=== PATIENT | female | born 1955 | race Caucasian/White ===

== ENCOUNTER → 2020-09-26 09:33 | Outpatient (BNVA) | payer MEDICARE, SELFPAY | PROVIDERS: Referring Provider Nurse Practitioner Family; Visit Provider Orthopaedic Surgery | DX: S42.292D Other displaced fracture of upper end of left humerus, subsequent encounter for fracture with routine healing (principal); X58.XXXD Exposure to other specified factors, subsequent encounter | CPT/HCPCS: 73030 ==

== ENCOUNTER → 2020-11-13 08:18 | Outpatient (BNVA) | payer MEDICARE, SELFPAY | PROVIDERS: PCP Nurse Practitioner Family; Referring Provider Orthopaedic Surgery; Visit Provider Anesthesiology Pain Medicine | DX: M54.5 Low back pain (principal); M19.90 Unspecified osteoarthritis, unspecified site; Z79.891 Long term (current) use of opiate analgesic | CPT/HCPCS: 99215 ==

== ENCOUNTER → 2020-12-04 12:39 | Outpatient (BNVA) | payer MEDICARE, MEDICAID, SELFPAY | PROVIDERS: PCP Nurse Practitioner Family; Visit Provider Anesthesiology Pain Medicine | DX: M51.17 Intervertebral disc disorders with radiculopathy, lumbosacral region (principal); Z79.891 Long term (current) use of opiate analgesic | CPT/HCPCS: 62323; J1040; J3490 ==

== ENCOUNTER → 2020-12-18 10:48 | Outpatient (BNVA) | payer MEDICARE, SELFPAY | PROVIDERS: PCP Nurse Practitioner Family; Visit Provider Anesthesiology Pain Medicine | DX: M47.816 Spondylosis without myelopathy or radiculopathy, lumbar region (principal); S32.009A Unspecified fracture of unspecified lumbar vertebra, initial encounter for closed fracture; X58.XXXA Exposure to other specified factors, initial encounter; Z79.891 Long term (current) use of opiate analgesic; S42.302A Unspecified fracture of shaft of humerus, left arm, initial encounter for closed fracture | CPT/HCPCS: 73030; 99213; 99214 ==

== ENCOUNTER 2020-12-18 14:12 | Outpatient (CLI) | payer MEDICARE, SELFPAY ==
--- NOTE | 2020-12-18 14:30 | XR_ITS ---
WS: [id number] SHOULDER LEFT TECHNIQUE: 3 views of the left shoulder CLINICAL INFORMATION: S42.309A - Unspecified fracture of shaft of humerus, unsp... COMPARISON: None. FINDINGS: Moderate arthritis AC joint with hypertrophic changes. Mild downsloping of the acromion. Previously d escribed impacted fracture left humeral head and neck with loss of subacromial space. No dislocation. Fracture lines are less apparent today. Greater tuberosity fracture fragment similar to August 23 1 Osteopenia. XR/XR shoulder LT min 2V* [id number] IMPRESSION: Previously described impacted fracture left humeral head and neck is similar in alignment compared to previous with less apparent fracture lines today compati ble with interval healing
== END 2020-12-18 14:13 | disposition home or self-care (01) ==
PROVIDERS: PCP Nurse Practitioner Family; Visit Provider Anesthesiology Pain Medicine
DX: S42.302A Unspecified fracture of shaft of humerus, left arm, initial encounter for closed fracture (principal); X58.XXXA Exposure to other specified factors, initial encounter
CPT/HCPCS: 73030

== ENCOUNTER → 2021-01-23 11:03 | Outpatient (BNVA) | payer MEDICARE, SELFPAY | PROVIDERS: PCP Nurse Practitioner Family; Visit Provider Anesthesiology Pain Medicine | DX: M51.17 Intervertebral disc disorders with radiculopathy, lumbosacral region (principal); M51.36 Other intervertebral disc degeneration, lumbar region; S42.302A Unspecified fracture of shaft of humerus, left arm, initial encounter for closed fracture; M54.2 Cervicalgia; M54.9 Dorsalgia, unspecified; Z79.891 Long term (current) use of opiate analgesic; X58.XXXA Exposure to other specified factors, initial encounter | CPT/HCPCS: 99214 ==

== ENCOUNTER 2021-01-23 11:43 | Outpatient (CLI) | payer MEDICARE, SELFPAY ==
--- NOTE | 2021-01-23 11:50 | XR_ITS ---
WS: [id number] LUMBAR SPINE: 5 VIEWS TECHNIQUE: AP, obliques, lateral and L5-S1 spot. HISTORY: Low back pain, LEFT hip and leg pain. COMPARISON: 09/20/2020 Mild LEFT curvature lumbar spine. Severe disc space narrowing throughout the lumbar spine. There is d iffuse osteopenia. Prior compression fractures involving L1-L4. L4 compression fracture has increased and is now biconcave. Moderate facet joint arthritis throughout the lumbar spine. Bilateral moderate to severe foraminal st enosis at all levels. SI joints are symmetric bilaterally. No soft tissue abnormalities. XR/XR lumbar spine min 4V 23550 IMPRESSION: 1. Remote compression fractures involving L1-L4. L4 compression fracture has p rogressed and is now biconcave. Progression since 09/20/2020. 2. Diffuse osteopenia. 3. Moderate to severe bilateral foraminal stenosis at all levels.
== END 2021-01-23 11:44 | disposition home or self-care (01) ==
PROVIDERS: PCP Nurse Practitioner Family; Visit Provider Anesthesiology Pain Medicine
DX: M79.605 Pain in left leg; S32.019A Unspecified fracture of first lumbar vertebra, initial encounter for closed fracture; M25.552 Pain in left hip; S32.029A Unspecified fracture of second lumbar vertebra, initial encounter for closed fracture; S32.039A Unspecified fracture of third lumbar vertebra, initial encounter for closed fracture; S32.049A Unspecified fracture of fourth lumbar vertebra, initial encounter for closed fracture; X58.XXXA Exposure to other specified factors, initial encounter; M85.80 Other specified disorders of bone density and structure, unspecified site; M48.061 Spinal stenosis, lumbar region without neurogenic claudication
CPT/HCPCS: 72110

== ENCOUNTER 2021-01-25 06:00 | Outpatient (RCR) | payer MEDICARE, SELFPAY | END 2021-02-23 23:59 | disposition home or self-care (01) | LOC: MPT 06:00 | PROVIDERS: PCP Nurse Practitioner Family; Referring Provider Anesthesiology Pain Medicine; Visit Provider Anesthesiology Pain Medicine | DX: S42.309A Unspecified fracture of shaft of humerus, unspecified arm, initial encounter for closed fracture (principal); X58.XXXA Exposure to other specified factors, initial encounter | CPT/HCPCS: 97110; 97140; 97161; G0283 ==

== ENCOUNTER → 2021-02-05 13:25 | Outpatient (BNVA) | payer MEDICARE, MEDICAID, SELFPAY | PROVIDERS: PCP Nurse Practitioner Family; Visit Provider Anesthesiology Pain Medicine | DX: G89.29 Other chronic pain (principal); M54.16 Radiculopathy, lumbar region; Z87.891 Personal history of nicotine dependence | CPT/HCPCS: 62323; J1100; J3490 ==

== ENCOUNTER 2021-02-15 14:39 | Outpatient (CLI) | payer MEDICARE, MEDICAID, SELFPAY ==
--- NOTE | 2021-02-15 15:15 | MR_ITS ---
WS: [id number] MRI LUMBAR SPINE NONCONTRAST HISTORY: Pain after fall, worse in the LEFT gluteal region. COMPARISON: 09/28/2020 TECHNIQUE: Sagittal and axial multisequence imaging is submitted. Straightening of the normal cervical lordosis. Slight reversal at C5-6 level with a focal disc protru levi contacting the ventral cervical cord and facet arthritis. Mild central stenosis at C5-6. Abnorma l signal in the T6 vertebral body. This may be related to a prior mild compression deformity of appro ximately 20%. No retropulsion. This vertebral body abnormality is only seen on the survey image. Straightening and LEFT curvature of the lumbar spine. Multiple compression fractures in the lumbar spine. L1 compression fracture with edema greatest along the RIGHT lateral vertebral body and a small amount of edema extending into the LEFT pedicle and gentile tiny is new since 09/28/2020. 2 mm retropulsion of posterior superior endplate. Approximately 20% loss o f height. L2 compression fracture with concave deformity in the superior endplate is unchanged. Mild anterior wedging of L3 is unchanged. L4 compression fracture has progressed. There is biconcave defor mity of L4 vertebral body with new marrow edema extending into the pedicles. Very mild retropulsion o f the posterior vertebral body by 3 mm is new. L5 is normal height. L5 anterolisthesis by 8 mm. There is new marrow edema which is minimal in the pedicles and lamina of L5. Conus terminates normally at L1. T12-L1: Diffuse moderate annular disc bulging with encroachment and deformity the ventral thecal sac. Moderate ligamentum flavum and facet arthritis contributing to mild central, bilateral subarticular and foraminal stenosis. There is very slight retropulsion of posterior superior endplate by 2 mm with only minimal contact on the thecal sac. L1-L2: Diffuse annular disc bulging and osteophytic ridging with moderate facet and ligamentum flavum hypertrophy. Facet disease encroaches into the lateral thecal sac and subarticular recesses. Mild ce ntral stenosis with moderate bilateral subarticular recess and foraminal stenosis. Most significant s tenosis involves the RIGHT foramen where there is encroachment upon the traversing and exiting nerve roots. L2-L3: Marked annular disc bulging with osteophytic ridging. Advanced facet and ligamentum flavum hyp ertrophy. Encroachment into the thecal sac with moderate to severe central and bilateral subarticular recess and RIGHT foraminal stenosis. Mild stenosis LEFT foramen. Significant effacement of CSF. L3-L4: Marked annular disc bulging and osteophytic ridging with facet and ligamentum flavum hypertrop hy encroaching into the thecal sac and subarticular recesses. Just below the disc level there is branden re stenosis which is being exacerbated by retropulsion of L4. Severe central, bilateral subarticular recess and foraminal stenosis. L4-L5: Diffuse annular disc bulging with osteophytic ridging. Severe facet joint arthritis and ligame ntum flavum hypertrophy encroaching into the thecal sac. Severe central, bilateral subarticular reces s and foraminal stenosis. There is complete effacement of fat in the foramen and subarticular recesse s. L5-S1: Mild unroofing of the disc with a disc contacting the ventral thecal sac. Moderate ligamentum flavum and facet arthritis. There is severe central stenosis just above the disc level with moderate to severe bilateral foraminal stenosis and encroachment upon the nerve roots.There is edema within th e paravertebral soft tissues at the L4 and L5 levels. This may be related to an acute inflammatory pr ocess or secondary to the recent epidural injections. MR/MR lumbar spine wo con* [id number] IMPRESSION: 1. New compression fractures at L1 and L4 since 09/28/2020. L4 compression fract ure has progressed. Minimal retropulsion of posterior superior endplates. 2. Remote stable compression fractures at L2 and L3. 3. Severe central, bilateral subarticular recess and foraminal stenosis at L4- 5. 4. Severe central stenosis just above the disc level at L5-S1 with moderate to severe bilateral foraminal stenosis and encroachment upon the nerve roots. 5. Severe central, bilateral subarticular recess and foraminal stenosis at L3- 4. 6. Moderate to severe central and bilateral subarticular recess and RIGHT [place] stenosis at L2-3. Only mild LEFT foraminal stenosis. 7. Mild central stenosis with moderate bilateral subarticular recess and sam inal stenosis at L1-2. 8. Mild central, bilateral subarticular recess and foraminal stenosis at T12-L 1. 9. Mild cervical stenosis at C5-6 is noted on the survey image. 10. Abnormal signal in the T6 vertebral body may be from a remote compression fracture. 11. L5 anterolisthesis by 8 mm.
== END 2021-02-15 14:40 | disposition home or self-care (01) ==
LOC: RADSHAW 14:49
PROVIDERS: PCP Nurse Practitioner Family; Visit Provider Anesthesiology Pain Medicine
DX: S32.019A Unspecified fracture of first lumbar vertebra, initial encounter for closed fracture (principal); S32.049A Unspecified fracture of fourth lumbar vertebra, initial encounter for closed fracture; S32.029A Unspecified fracture of second lumbar vertebra, initial encounter for closed fracture; S32.039A Unspecified fracture of third lumbar vertebra, initial encounter for closed fracture; M48.061 Spinal stenosis, lumbar region without neurogenic claudication; M48.07 Spinal stenosis, lumbosacral region; M48.02 Spinal stenosis, cervical region; X58.XXXA Exposure to other specified factors, initial encounter
CPT/HCPCS: 72148

== ENCOUNTER → 2021-02-27 09:27 | Outpatient (BNVA) | payer MEDICARE, SELFPAY | PROVIDERS: PCP Nurse Practitioner Family; Visit Provider Anesthesiology Pain Medicine | DX: M54.2 Cervicalgia (principal); S42.309A Unspecified fracture of shaft of humerus, unspecified arm, initial encounter for closed fracture; S32.010A Wedge compression fracture of first lumbar vertebra, initial encounter for closed fracture; S32.040A Wedge compression fracture of fourth lumbar vertebra, initial encounter for closed fracture; S32.020A Wedge compression fracture of second lumbar vertebra, initial encounter for closed fracture; S32.030A Wedge compression fracture of third lumbar vertebra, initial encounter for closed fracture; X58.XXXA Exposure to other specified factors, initial encounter; M19.012 Primary osteoarthritis, left shoulder; M43.16 Spondylolisthesis, lumbar region; M48.061 Spinal stenosis, lumbar region without neurogenic claudication | CPT/HCPCS: 99205 ==

== ENCOUNTER 2021-04-10 10:06 | Day surgery (SDC) | payer MEDICARE, SELFPAY ==
[2021-04-09 13:25] VITALS: BMI 39.0
[2021-04-10] VITALS (8 sets, daily range): BP systolic 107–175; BP diastolic 60–111; PULSE 60–91; RESP 16–20; TEMP 36.3–36.4; O2SAT 94–96
--- NOTE | 2021-04-10 | SCC_ITS ---
Procedure done: Kyphoplasty L1 and L4 , vertebroplasty L2 and L3 156.2 seconds of fluoroscopic guidance, for a cumulative dose of 255.29 mGy and 240.03 mGy, was provided to Dr. Newton by the radiology department. C-arm images of the lumbar spine were saved for the patient's permanent record. [facility]
--- NOTE | 2021-04-10 10:54 | ECG_ITS ---
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 Measurements Intervals [place] Rate: 75 P: 54 IN: 143 QRS: 35 QRSD: 83 T: 46 QT: 373 QTc: 418 Interpretive Statements SINUS RHYTHM No previous ECG available for comparison Electronically Signed On 04-11-2021 14:49:36 MAPPING TECHNICIAN by Estefanía Ang M.D. [id number]
--- NOTE | 2021-04-10 10:58 | SC_ITS ---
WS: [id number] INTRAOPERATIVE TECHNIQUE: 9 Spot fluoroscopic images for intraoperative purposes. FLUOROSCOPY TIME: 149.4 seconds CLINICAL INFORMATION: kyphoplasty COMPARISON: None. FINDINGS: Fluoroscopy utilized for multilevel kyphoplasty at L1, L2, L3, and L4. Unilateral kyphoplasty at L2 a nd L3. SC/C-arm FL for Kyphoplasty IMPRESSION: Images obtained for intraoperative purposes.
[2021-04-10] MEDS: sodium chloride 0.9% 1,000 ML 30 ML IV (11:36)
--- NOTE | 2021-04-10 11:43 | ANES.PREANE2 ---
Pre-Anesthetic Assessment Height/Weight: Height 1.52 m Weight 90.718 kg Temp Pulse Resp BP Pulse Ox 97.4 F L 91 20 H 175/111 94 04/10/21 11:08 04/10/21 11:08 04/10/21 11:08 04/10/21 11:08 04/10/21 11:08 Preop Diagnosis: compression fracture Operation Date: 04/10/21 12:00 Proposed Procedures p Kyphoplasty L2,L3 Vertebroplasty, L1,L4 kypho [id number]/s32.020A/s32.030a(Not Applicable) - Sekou Newton MD Familial anesthetic complications: None Was Beta Pattie taken within 24 hours: N/A Was Clonidine taken within 24 hours: N/A Last intake: Intake Last Liquid Date 04/09/21 Last Liquid Time 18:00 Last Solid Date 04/09/21 Last Solid Time 18:00 Social No alcohol and No tobacco Exam alert, oriented x 3, clear to auscultation bilaterally and regular rate & rhythm Airway Submandibular: within normal limits Cervical ROM: within normal limits Mallampati: Class II Dentition: full GI Gastroesophageal Reflux Disease Metabolic Morbid Obesity [facility] Lower Back Pain and Osteoarthritis/DJD Anesthetic Plan ASA status: 3 Anesthesia: Choice Medications/Allergies Home Medications Medication Instructions Recorded Confirmed Last Taken Type naproxen 500 mg tablet 500 mg PO BID 09/26/20 04/09/21 04/09/21 History omeprazole 20 mg capsule,delayed 20 mg PO DAILY 09/26/20 04/09/21 04/09/21 History release zolpidem 10 mg tablet (Ambien) 10 mg PO BEDTIME 09/26/20 04/09/21 04/09/21 History duloxetine 60 mg capsule,delayed 60 mg PO DAILY 10/24/20 04/09/21 04/09/21 History release hydroxyzine HCl 25 mg tablet 25 mg PO ONCE PRN tab 10/24/20 04/09/21 04/09/21 History quetiapine 25 mg tablet 25 mg PO DAILY 10/24/20 04/09/21 04/09/21 History solifenacin 10 mg tablet 10 mg PO DAILY 10/24/20 04/09/21 04/09/21 History amitriptyline 25 mg tablet 25 mg PO DAILY 11/13/20 04/09/2104/09/22 History sertraline 100 mg tablet 100 mg PO DAILY 11/13/20 04/09/21 04/09/21 History gabapentin 600 mg tablet 600 mg PO TID #90 tab 01/23/21 04/09/21 04/09/21 Rx furosemide 20 mg tablet 20 mg PO PRN PRN 04/09/21 04/09/21 04/06/21 History multivit with tab PO DAILY 04/09/21 04/09/21 History srxqmnmf-cycs-GQ-lutein 8 mg iron-400 mcg-300 mcg tablet (Multivitamin Women 50 Plus) umpvqexk-cqp-Sm-FA 1 mg 1 tab PO DAILY 04/09/21 04/09/21 04/09/21 History tablet Allergies Allergy/AdvReac Type Severity Reaction Status Date / Time neomycin Allergy ears swell Verified 02/27/21 09:37 [From Neronote ([id number])] polymyxin B Allergy ears swell Verified 02/27/21 09:37 [From Neronote ([id number])] Current Medications Generic Name Dose Route Start Last Admin Trade Name Freq PRN Reason Stop Dose Admin Sodium Chloride 1,000 mls @ 30 mls/hr 04/10/21 11:00 04/10/21 11:36 Sodium Chloride 0.9% IV 04/11/21 10:59 30 mls/hr .Q24H JOSE DE JESUS Administration PFSH Anesthesia Medical History Fracture of lumbar spine Social History Second hand smoke exposure: No Alcohol intake: current Alcohol intake frequency: holidays/special occasions only Alcohol type: wine History of recent travel: No Data Anesthesia : 04/10/21 10:58 Cardiac Studies: No Data to Display
--- NOTE | 2021-04-10 12:09 | W.PM.OPSUD ---
Surgery/Procedure H&P Update DATE OF PROCEDURE: April 10, 2021 DATE H&P PERFORMED: 02/27/21 H&P UPDATE INFORMATION: I have examined patient prior to procedure and No changes to prior documentation PREOP DIAGNOSIS: compression fracture PLANNED PROCEDURE: Operation Date: 04/10/21 12:00 Proposed Procedures p Kyphoplasty L2,L3 Vertebroplasty, L1,L4 kypho [id number]/62819/s32.020A/s32.030a(Not Applicable) - Sekou Newton MD
[2021-04-10] MEDS: iohexol 300 mg/mL 50 mL Btl (OR ONLY) XX (12:50)
[2021-04-10] MEDS: oxyCODONE 5 mg IR Tab/Cap 7.5 MG PO (15:45)
--- NOTE | 2021-04-10 16:47 | ANE.PACU2 ---
Inpatient post-anesthesia follow up: Airway intact: Yes Vital signs: Temperature 97.6 F Pulse Rate 73 Respiratory Rate 18 Blood Pressure 119/91 Pulse Oximetry 95 Oxygen Delivery Me thod Room Air Oxygen Flow Rate 2 Fraction of Inspir ed Oxygen Hydration adequate: Yes Nausea and vomiting: No Pain level: 4 Mental status: Baseline
--- NOTE | 2021-04-11 09:06 | PM.OP ---
Operative Report Date of procedure: April 10, 2021 Pre-op diagnosis: Preop Diagnosis compression fracture Post-op diagnosis: Compression fracture of L1/2/3/4 vertebral bodies Post-op findings: Compression fracture of L1/2/3/4 vertebral bodies Procedure done: Kyphoplasty L1 and L4 , vertebroplasty L2 and L3 Pathology: L4 bone biopsy sent Surgeon: Sekou Newton MD Estimated blood loss: 25 IV fluids: Per anesthesia Brief History: History of compression fractures Procedure: PREOPERATIVE DIAGNOSIS:? Compression fracture of L1/2/3/4 vertebral bodies POSTOPERATIVE DIAGNOSIS: Same PROCEDURE: 1 . Kyphoplasty L1 and L4 , vertebroplasty L2 and L3 2.? Fluoroscopic Guidance of the above SURGEON:? Sekou Newton M.D. ANESTHESIA:? Local Anesthesia PROCEDURE IN DETAIL:? Informed consent was obtained, explaining risks, benefits, and alternatives of the procedure to the patient.?? Operative site was marked in the holding area.? The patient was then taken to the procedure room and placed in the prone position on the procedure table.? The back and buttocks were prepped with ChloraPrep solution and a sterile drape was applied.? A time-out was performed to verify the correct patient, procedure, and location. Using fluoroscopy, the spine was examined.? The ( L4 ) ?level was verified in AP and lateral views.? I planned a bilateral trans pedicular approach.? A skin wheal was raised and the subcutaneous tissues anesthetized with 1% lidocaine approximately 5ml on the right side.? A small stab incision was made with a #15 blade.? The introducer cannula was advanced to dock with the right pedicle in an AP view.?? It was advanced through the pedicle using a mallet in both AP and lateral views, taking care not to traverse the medial aspect of the pedicle in the AP view until the tip was into the vertebral body.? ??The cannula was advanced to the posterior third of the body in a lateral view.? Following this a biopsy probe was advanced to the anterior 1/3 of the vertebral body and withdrawn under fluoro guidance. ?The manual drill was used to then create space into which deploy the balloon.? Balloon was then placed and inflated.?? Position in AP and lateral views was optimal. Next a skin wheal was raised and the subcutaneous tissues anesthetized with 1% lidocaine approximately 5ml on the left side.? A small stab incision was made with a #15 blade.? The introducer cannula was advanced to dock with the pedicle in an AP view.?? It was advanced through the pedicle using a mallet in both AP and lateral views, taking care not to traverse the medial aspect of the pedicle in the AP view until the tip was into the vertebral body.? ??The cannula was advanced to the posterior third of the body in a lateral view.?? The manual drill was used to then create space into which deploy the balloon.? Balloon was then placed and inflated.?? Position in AP and lateral views was optimal. Using fluoroscopy, the spine was examined.? The ( L3 ) ?level was verified in AP and lateral views.? I planned a unilateral trans pedicular approach.? A skin wheal was raised and the subcutaneous tissues anesthetized with 1% lidocaine approximately 5ml on the right side.? A small stab incision was made with a #15 blade.? The introducer cannula was advanced to dock with the right pedicle in an AP view.?? It was advanced through the pedicle using a mallet in both AP and lateral views, taking care not to traverse the medial aspect of the pedicle in the AP view until the tip was into the vertebral body.? Position in AP and lateral views was optimal. ?Using fluoroscopy, the spine was examined.? The ( L2 ) ?level was verified in AP and lateral views.? I planned a unilateral trans pedicular approach.? A skin wheal was raised and the subcutaneous tissues anesthetized with 1% lidocaine approximately 5ml on the right side.? A small stab incision was made with a #15 blade.? The introducer cannula was advanced to dock with the left pedicle in an AP view.?? It was advanced through the pedicle using a mallet in both AP and lateral views, taking care not to traverse the medial aspect of the pedicle in the AP view until the tip was into the vertebral body.? Position in AP and lateral views was optimal. Using fluoroscopy, the spine was examined.? The ( L1 ) ?level was verified in AP and lateral views.? I planned a bilateral trans pedicular approach.? A skin wheal was raised and the subcutaneous tissues anesthetized with 1% lidocaine approximately 5ml on the right side.? A small stab incision was made with a #15 blade.? The introducer cannula was advanced to dock with the right pedicle in an AP view.?? It was advanced through the pedicle using a mallet in both AP and lateral views, taking care not to traverse the medial aspect of the pedicle in the AP view until the tip was into the vertebral body.? ??The cannula was advanced to the posterior third of the body in a lateral view.? Following this a biopsy probe was advanced to the anterior 1/3 of the vertebral body and withdrawn under fluoro guidance. ?The manual drill was used to then create space into which deploy the balloon.? Balloon was then placed and inflated.?? Position in AP and lateral views was optimal. Next a skin wheal was raised and the subcutaneous tissues anesthetized with 1% lidocaine approximately 5ml on the left side.? A small stab incision was made with a #15 blade.? The introducer cannula was advanced to dock with the pedicle in an AP view.?? It was advanced through the pedicle using a mallet in both AP and lateral views, taking care not to traverse the medial aspect of the pedicle in the AP view until the tip was into the vertebral body.? ??The cannula was advanced to the posterior third of the body in a lateral view.?? The manual drill was used to then create space into which deploy the balloon.? Balloon was then placed and inflated.?? Position in AP and lateral views was optimal. Balloons were removed and I placed barium impregnated PMMA cement under direct fluoroscopic visualization ruling out extravasation or vascular uptake.? There was good interdigitization and filling of the vertebral? body. The cannulas were removed making sure not to withdraw any cement. 3-0 nylon was used to close the minimal incision and sterile dressing was applied. The patient tolerated the procedure well with no apparent complications. PMMA cement was then placed at L2 and L3 under direct fluoroscopic visualization ruling out extravasation or vascular uptake.? There was good interdigitization and filling of the vertebral? body. The cannulas were removed making sure not to withdraw any cement. 3-0 nylon was used to close the minimal incision and sterile dressing was applied. The patient tolerated the procedure well with no apparent complications and was taken to recovery room. ? IMPRESSION: successful Kyphoplasty L1 and L4 , vertebroplasty L2 and L3
== END 2021-04-10 16:40 | disposition home or self-care (01) ==
PROVIDERS: PCP Nurse Practitioner Family; Visit Provider Anesthesiology Pain Medicine
PROC: (CPT 22511; principal; 2021-04-10 12:00)
DX: S32.010A Wedge compression fracture of first lumbar vertebra, initial encounter for closed fracture (principal); S32.040A Wedge compression fracture of fourth lumbar vertebra, initial encounter for closed fracture; S32.020A Wedge compression fracture of second lumbar vertebra, initial encounter for closed fracture; S32.030A Wedge compression fracture of third lumbar vertebra, initial encounter for closed fracture; X58.XXXA Exposure to other specified factors, initial encounter
CPT/HCPCS: 22511; 22512; 22514; 22515; 36415; 76000; 88307; 88311; 93005; J0690; J2250; J2704; J3010; J3490; J7030

== ENCOUNTER → 2021-04-24 10:22 | Outpatient (BNVA) | payer MEDICARE, SELFPAY | PROVIDERS: PCP Nurse Practitioner Family; Visit Provider Anesthesiology Pain Medicine | DX: M54.50 Low back pain, unspecified (principal); M54.2 Cervicalgia; S42.309A Unspecified fracture of shaft of humerus, unspecified arm, initial encounter for closed fracture; X58.XXXA Exposure to other specified factors, initial encounter; Z79.891 Long term (current) use of opiate analgesic | CPT/HCPCS: 99024 ==

== ENCOUNTER → 2021-05-14 14:10 | Outpatient (BNVA) | payer MEDICARE, MEDICAID, SELFPAY | PROVIDERS: PCP Nurse Practitioner Family; Visit Provider Anesthesiology Pain Medicine | DX: Z79.891 Long term (current) use of opiate analgesic (principal); M54.16 Radiculopathy, lumbar region | CPT/HCPCS: 64483; 64484; J1100; J3490 ==

== ENCOUNTER → 2021-06-14 08:41 | Outpatient (BNVA) | payer MEDICARE, SELFPAY | PROVIDERS: PCP Nurse Practitioner Family; Visit Provider Anesthesiology Pain Medicine | DX: M54.50 Low back pain, unspecified (principal); M54.2 Cervicalgia; R41.3 Other amnesia; S42.309A Unspecified fracture of shaft of humerus, unspecified arm, initial encounter for closed fracture; X58.XXXA Exposure to other specified factors, initial encounter; M79.604 Pain in right leg; Z79.891 Long term (current) use of opiate analgesic | CPT/HCPCS: 99215 ==

== ENCOUNTER 2021-06-14 10:04 | Emergency (ER) | payer MEDICARE, MEDICAID, SELFPAY ==
[2021-06-14 10:27] VITALS: BP 156/98; PULSE 97; RESP 20; TEMP 36.6; O2SAT 93; BMI 37.5
--- NOTE | 2021-06-14 11:08 | XR_ITS ---
WS: [id number] Exam: XR hip RT 2-3V wo/w pel* [id number] Date/Time of Exam: 06/14/2021 11:28 AM Reason For Exam: hip pain Comparison 09/20/2020. No fracture or dislocation noted. Moderate DJD of the joint compartment. Normal soft tissues. XR/XR hip RT 2-3V wo/w pel* [id number] IMPRESSION: 1. Moderate DJD. No fracture.
--- NOTE | 2021-06-14 11:29 | CT_ITS ---
WS: [id number] CT HEAD TECHNIQUE: Noncontrast CT of the head obtained from the skullbase to the vertex. CLINICAL INFORMATION: ams, memory loss per pcp COMPARISON: None. DLP: 947.[address] scans at [facility] use at least one of these dose optimization techniques: automated e xposure control; mA and/or kV adjustment per patient size (includes targeted exams where dose is matc hed to clinical indication); or iterative reconstruction. FINDINGS: No evidence of intracranial hemorrhage or mass effect. Ventricular system and basal cisterns are hector nt. Mild small vessel changes with mild parenchymal volume loss. No extra-axial fluid collections. No evidence of mass or mass effect. Normal garland-white differentiation. Paranasal sinuses and mastoid air cells are well aerated. .Normal visualized soft tissues. CT/CT head wo con* [id number] IMPRESSION: 1. No evidence of intracranial hemorrhage or mass effect. 2. Mild small vessel changes. Mild parenchymal volume loss. 3. No acute intracranial findings.
[2021-06-14 11:47] VITALS: BP 138/106; PULSE 88; RESP 20; O2SAT 95
[2021-06-14 11:57] LABS: Basophils # 0.1 10^3/uL (0.0-0.1); Basophils % 0.4 %; Eosinophils # 0.4 10^3/uL (0.0-0.8); Eosinophils % 2.9 %; Hematocrit 38.8 % (37.0-47.0); Hemoglobin 12.8 g/dL (11.5-15.3); Lymphocytes # 2.4 10^3/uL (0.8-4.8); Lymphocytes % 19.3 %; Mean Corpuscular Hemoglobin 29.7 pg (28.0-34.0); Mean Platelet Volume 10.6 fL (7.4-10.4); Monocytes # 0.9 10^3/uL (0.2-0.9); Monocytes % 7.4 %; Neutrophils # 8.46 10^3/uL (1.8-7.7); Neutrophils % 69.2 %; Nucleated Red Blood Cells % 0 %; Platelet Count 347 10^3/cmm (130-400); Red Blood Count 4.31 10^6/uL (4.1-5.3); Red Cell Distribution Width 13.4 % (12.1-15.1); White Blood Count 12.2 10^3/uL (4.0-10.0)
--- NOTE | 2021-06-14 12:05 | W.ED.GENADLT ---
HPI - General Adult General: Chief complaint: General Medical Stated complaint: wanting x-ray for chest Time Seen by Provider: 06/14/21 11:26 History of Present Illness: 65-year-old female with history of chronic bilateral hip pain presenting to the emergency room with acute worsening of the right hip and thigh pain. Patient has been she has been having right-sided hip pain for the last 2-month. About 3 days, patient fell onto her right side. Since then, patient has had worsening right-sided hip pain. Patient denies hitting her head at that time or losing consciousness Patient reports ability to range the right hip without any difficulty but has occasional sharp crampy pain in the right thigh. Patient has been able to ambulate with a walker. Denies any other focal extremity pain. She has no other focal complaints including decreased weakness, popping sensation, dislocation of the hip or other complaints. Onset:2 months ago Duration:2 months Location:home Severity:moderate Associated symptoms: Deny chest pain, dyspnea, nausea, rash, palpitations or vomiting Review of Systems Const: Denies: fever(s) or chills Eyes: Denies: change in vision ENMT: Denies: mouth pain Card: Denies: chest pain or palpitations Resp: Denies: dyspnea or non-productive cough GI: Denies: abdominal pain, nausea, vomiting or diarrhea : Denies: dysuria Musc: Reports: extremity pain (+R hip pain/R thigh pain) Skin/Breast: Denies: rash or new lesions Neuro: Denies: weakness in extremities Psych: Reports: other (Normal mood) Jaime/Lymph: Denies: easy bruising PFSH ED PFSH: Medical History Fracture of lumbar spine Social History Smoking and tobacco status: never smoked Second hand smoke exposure: No Alcohol intake: current Alcohol intake frequency: holidays/special occasions only Alcohol type: wine History of recent travel: No Physical Exam Const: COMMON NORMALS: alert HENMT: COMMON NORMALS: atraumatic HEAD & SCALP: atraumatic MOUTH: moist mucous membranes not abnormal Eye: COMMON NORMALS: EOMs intact bilaterally and conjunctivae normal CONJUNCTIVA: Yes conjunctivae normal Neck/C-Spine: COMMON NORMALS: full ROM and supple Resp: COMMON NORMALS: normal respiratory effort and clear to auscultation bilaterally AUSCULTATION: clear to auscultation bilaterally Cardio: COMMON NORMALS: regular rate RATE: regular rate GI: COMMON NORMALS: Soft to palpation and non-tender PALPATION: Yes Soft to palpation Extremity: COMMON NORMALS: full ROM NARRATIVE EXTREMITY EXAM: + Range of motion of the right hip intact, 2+ DP/PT pulses on the affected extremity, sensation and strength intact in the right lower extremity, patient is able to bear weight on the right leg. Neuro: SENSORIUM/ORIENTATION: Yes alert MOTOR EXAM: No Abnormal motor strength present and Other motor observations present (no focal motor deficits) Psych: COMMON NORMALS: speech normal SPEECH: Yes normal speech MOOD & AFFECT: Yes euthymic mood Course Vital Signs: Vital signs: Vital Signs Temperature 97.9 F 06/14/21 10:27 Pulse Rate 84 06/14/21 12:47 Respiratory Rate 18 06/14/21 12:47 Blood Pressure 145/75 06/14/21 12:47 Pulse Oximetry 94 06/14/21 12:47 MDM - General Adult Medical Decision Making 65-year-old female presenting to the emergency room with complaints of right thigh hip pain. Full range of motion, neurovascular exam intact in the right extremity. X-ray did not show any signs of acute fracture. Do not suspect any occult fracture or injury. However I have given patient structured to follow-up for repeat x-ray should she have any hip pain 7 days after fall to evaluate for occult fx. Patient is instructed follow-up closely with PCP for further evaluation of symptoms today. Rx: norflex, tylenol, lidocaine patch, and menthol PRN pain Disposition: Discharge. Patient counseled regarding diagnostic impression, treatment plan. Patient given ED strict return precautions to return for continuation, worsening, or development of new symptoms. Instructed to f/u w/ PCP regarding symptoms today. Patient verbalized understanding. Lab Data : 06/14/21 11:44 06/14/21 11:44 Radiology Impressions Hip/Pelvis X-Ray 06/14/21 11:08 IMPRESSION: 1. Moderate DJD. No fracture. Head CT 06/14/21 11:29 IMPRESSION: 1. No evidence of intracranial hemorrhage or mass effect. 2. Mild small vessel changes. Mild parenchymal volume loss. 3. No acute intracranial findings. Laboratory Results WBC 12.2 10^3/uL (4.0-10.0) H 06/14/21 11:44 RBC 4.31 10^6/uL (4.1-5.3) 06/14/21 11:44 Hgb 12.8 g/dL (11.5-15.3) 06/14/21 11:44 Hct 38.8 % (37.0-47.0) 06/14/21 11:44 MCV 90.0 fl (81-99) 06/14/21 11:44 MCH 29.7 pg (28.0-34.0) 06/14/21 11:44 MCHC 33.0 g/dL (30.0-36.0) 06/14/21 11:44 RDW 13.4 % (12.1-15.1) 06/14/21 11:44 Plt Count 347 10^3/cmm (130-400) 06/14/21 11:44 MPV 10.6 fL (7.4-10.4) H 06/14/21 11:44 Neut % (Auto) 69.2 % 06/14/21 11:44 Lymph % (Auto) 19.3 % 06/14/21 11:44 [place] % (Auto) 7.4 % 06/14/21 11:44 Eos % (Auto) 2.9 % 06/14/21 11:44 Baso % (Auto) 0.4 % 06/14/21 11:44 Neut # (Auto) 8.46 10^3/uL (1.8-7.7) H 06/14/21 11:44 Lymph # (Auto) 2.4 10^3/uL (0.8-4.8) 06/14/21 11:44 [place] # (Auto) 0.9 10^3/uL (0.2-0.9) 06/14/21 11:44 Eos # (Auto) 0.4 10^3/uL (0.0-0.8) 06/14/21 11:44 Baso # (Auto) 0.1 10^3/uL (0.0-0.1) 06/14/21 11:44 Nucleated RBC % (auto) 0 % 06/14/21 11:44 Nucleated RBCs # 0.0 /100WBC 06/14/21 11:44 Sodium 139 mmol/L (136-145) 06/14/21 11:44 Potassium 3.7 mmol/L (3.5-5.1) 06/14/21 11:44 Chloride 103 mmol/L (98-107) 06/14/21 11:44 Carbon Dioxide 23 mmol/L (22-29) 06/14/21 11:44 Anion Gap 16.7 (5-19) 06/14/21 11:44 BUN 16 mg/dL (8-23) 06/14/21 11:44 Creatinine 0.6 mg/dL (0.5-0.9) 06/14/21 11:44 GFR Calculation 100.0 mL/min (90-130) 06/14/21 11:44 Glucose 93 mg/dL (65-115) 06/14/21 11:44 Calculated Osmolality 289 mOsm/kg (285-295) 06/14/21 11:44 Calcium 9.3 mg/dL (8.5-10.5) 06/14/21 11:44 Imaging Data Other Imaging: Radiologist's impression: [address] [address] XRay Report Signed Patient: Kathrin Harris Unit #: [id number] : 1955 Age/Sex: 65 / F ADM Date: 06/14/21 Loc: ER Room/Bed: Attending Dr: Ordering Provider/Ordering MD: Arnaud Álvarez MD Date of Service: 06/14/21 Procedure(s): XR hip RT 2-3V wo/w pel* [id number] Accession Number(s): [id number] Report Number: [id number] WS: [id number] Exam: XR hip RT 2-3V wo/w pel* [id number] Date/Time of Exam: 06/14/2021 11:28 AM Reason For Exam: hip pain Comparison 09/20/2020. No fracture or dislocation noted. Moderate DJD of the joint compartment. Normal soft tissues. XR/XR hip RT 2-3V wo/w pel* [id number] IMPRESSION: 1. Moderate DJD. No fracture. ? Dictated By: Rico Hand DO Signed By: Rico Hand DO Signed Date/Time: 06/14/21 1222 DD/ [address] [address] [address] Scan Report Signed Patient: Kathrin Harris Unit #: [id number] : 1955 Age/Sex: 65 / F ADM Date: 06/14/21 Loc: ER Room/Bed: Attending Dr: Ordering Provider/Ordering MD: Arnaud Álvarez MD Date of Service: 06/14/21 Procedure(s): CT head wo con* [id number] Accession Number(s): [id number] Report Number: [id number] WS: [id number] CT HEAD TECHNIQUE: Noncontrast CT of the head obtained from the skullbase to the vertex. CLINICAL INFORMATION: ams, memory loss per pcp COMPARISON: None. DLP: 947.[address] scans at [facility] use at least one of these dose optimization techniques: automated exposure control; mA and/or kV adjustment per patient size (includes targeted exams where dose is matched to clinical indication); or iterative reconstruction. FINDINGS: No evidence of intracranial hemorrhage or mass effect. Ventricular system and basal cisterns are patent. Mild small vessel changes with mild parenchymal volume loss. No extra-axial fluid collections. No evidence of mass or mass effect. Normal garland-white differentiation. Paranasal sinuses and mastoid air cells are well aerated. .Normal visualized soft tissues. CT/CT head wo con* [id number] IMPRESSION: ? 1.? No evidence of intracranial hemorrhage or mass effect. 2.? Mild small vessel changes. Mild parenchymal volume loss. 3.? No acute intracranial findings. ? Dictated By: Chad Mensah MD Signed By: Chad Mensah MD Signed Date/Time: 06/14/21 1250 DD/ 1247 Discharge Plan Discharge Patient Disposition: Home Clinical Impression: Chronic hip pain Condition: Stable Prescriptions: New acetaminophen 500 mg tablet 500 mg PO Q6H PRN (Reason: pain) 5 Days Qty: 20 0RF lidocaine 5 % adhesive patch,medicated 1 patch topical DAILY PRN (Reason: pain) 30 Days Qty: 30 0RF Rx Instructions: leave on most painful area for up to 12 hrs orphenadrine citrate 100 mg tablet extended release 100 mg PO BID PRN (Reason: pain) 10 Days Qty: 20 0RF Biofreeze (menthol) 5 % gel 1 ea topical BID PRN (Reason: pain) 10 Days Qty: 1 0RF No Action naproxen 500 mg tablet 500 mg PO BID 0RF omeprazole 20 mg capsule,delayed release(DR/EC) 20 mg PO DAILY 0RF zolpidem [Ambien] 10 mg tablet 10 mg PO BEDTIME 0RF sertraline 100 mg tablet 100 mg PO DAILY 0RF amitriptyline 25 mg tablet 25 mg PO DAILY 0RF duloxetine 60 mg capsule,delayed release(DR/EC) 60 mg PO DAILY 0RF hydroxyzine HCl 25 mg tablet 25 mg PO ONCE PRN (Reason: Anxiety) 0RF solifenacin 10 mg tablet 10 mg PO DAILY 0RF quetiapine 25 mg tablet 25 mg PO DAILY 0RF oxycodone-acetaminophen 7.5-325 mg tablet 1 tab PO TID PRN (Reason: pain) 7 Days Qty: 21 0RF furosemide 20 mg tablet 20 mg PO PRN PRN (Reason: Edema) 0RF [id number] 1 mg Tablet 1 tab PO DAILY 0RF Multivitamin Women 50 Plus 8 mg iron-400 mcg-300 mcg Tablet PO DAILY 0RF Discharge Orders: Discharge ED (Routine); Ordered 06/14/21 Ordered By: Arnaud Álvarez Referrals: Norma Frost, [employer] [Primary Care Provider] - Discharge Diet: Advance as tolerated Discharge Activity: Increase activity as tolerated Patient Instructions: Hip Pain (ED) Activity Restrictions/Additional Instructions: Please take your pain medicine as instructed. Come back to the emergency room should she have any further episodes of pain or any other new or concerning complaints. Coding Level of Care Code ED Wire Dropper for Crow Fwyanira Exam Comprehensive
[2021-06-14] MEDS: acetaminophen 500 mg Tablet PO (12:07)
[2021-06-14] MEDS: lidocaine 5% Patch 1 PATCH TOPICAL (12:08)
[2021-06-14 12:24] LABS: Anion Gap 16.7 (5-19); Blood Urea Nitrogen 16 mg/dL (8-23); Calcium 9.3 mg/dL (8.5-10.5); Carbon Dioxide 23 mmol/L (22-29); Chloride 103 mmol/L (98-107); Glucose 93 mg/dL (65-115); Osmolality Calculated 289 mOsm/kg (285-295); Potassium 3.7 mmol/L (3.5-5.1); Sodium 139 mmol/L (136-145)
[2021-06-14 12:47] VITALS: BP 145/75; PULSE 84; RESP 18; O2SAT 94
== END 2021-06-14 12:52 | disposition home or self-care (01) ==
PROVIDERS: Emergency Provider Emergency Medicine; PCP Nurse Practitioner Family
DX: M25.551 Pain in right hip (principal); M16.11 Unilateral primary osteoarthritis, right hip
CPT/HCPCS: 70450; 73502; 80048; 85025; 99283

== ENCOUNTER → 2021-07-24 08:31 | Outpatient (BNVA) | payer MEDICARE, SELFPAY | PROVIDERS: PCP Nurse Practitioner Family; Referring Provider Nurse Practitioner Family; Visit Provider Otolaryngology | DX: K11.7 Disturbances of salivary secretion (principal); E86.0 Dehydration | CPT/HCPCS: 99202; 99203 ==

== ENCOUNTER → 2021-08-14 08:52 | Outpatient (BNVA) | payer MEDICARE, SELFPAY | PROVIDERS: PCP Nurse Practitioner Family; Visit Provider Anesthesiology Pain Medicine | DX: M54.50 Low back pain, unspecified (principal); M54.2 Cervicalgia; S42.309A Unspecified fracture of shaft of humerus, unspecified arm, initial encounter for closed fracture; R41.3 Other amnesia; X58.XXXA Exposure to other specified factors, initial encounter; Z79.891 Long term (current) use of opiate analgesic | CPT/HCPCS: 99215 ==

== ENCOUNTER → 2021-10-23 09:37 | Outpatient (BNVA) | payer MEDICARE, SELFPAY | PROVIDERS: PCP Nurse Practitioner Family; Visit Provider Anesthesiology Pain Medicine | DX: M54.50 Low back pain, unspecified (principal); X58.XXXA Exposure to other specified factors, initial encounter; Z79.891 Long term (current) use of opiate analgesic; M54.2 Cervicalgia; S42.309A Unspecified fracture of shaft of humerus, unspecified arm, initial encounter for closed fracture | CPT/HCPCS: 99214 ==

== ENCOUNTER → 2021-10-30 11:59 | Outpatient (BNVA) | payer MEDICARE, SELFPAY | PROVIDERS: PCP Family Medicine; Visit Provider Specialist | DX: G25.5 Other chorea (principal); G31.84 Mild cognitive impairment of uncertain or unknown etiology | CPT/HCPCS: 96116; 99205 ==

== ENCOUNTER → 2021-11-08 13:25 | Outpatient (BNVA) | payer MEDICARE, OTHER, SELFPAY | PROVIDERS: PCP Family Medicine; Visit Provider Anesthesiology Pain Medicine | DX: M47.816 Spondylosis without myelopathy or radiculopathy, lumbar region (principal) | CPT/HCPCS: 64493; 64494; 64495; J3490 ==

== ENCOUNTER 2022-01-22 10:10 | Outpatient (CLI) | payer MEDICARE, SELFPAY ==
--- NOTE | 2022-01-22 11:00 | CT_ITS ---
WS: [id number] CT CHEST TECHNIQUE: Contrast enhanced CT of the chest with coronal and sagittal reformatted images. CLINICAL INFORMATION: M54.9 - Dorsalgia, unspecified COMPARISON: None. DLP: 570.[address] scans at [facility] use at least one of these dose optimization techniques: automated e xposure control; mA and/or kV adjustment per patient size (includes targeted exams where dose is matc hed to clinical indication); or iterative reconstruction. FINDINGS: Slight hazy groundglass opacities in the RIGHT middle lobe and both lower lobes nonspecific but likel y infectious or inflammatory. Lungs are otherwise well aerated. Calcified granulomas RIGHT upper lobe . No focal pneumonia or pleural fluid. Normal caliber thoracic aorta. Minimal aortic calcification. No mediastinal or hilar lymphadenopathy. No axillary lymphadenopathy. Adrenal glands are normal. Small esophageal hiatal hernia. Mild thoracic kyphosis. Chronic appearing biconcave compression at T6 vertebral body. This is unchanged since February 05, [address]/CT chest w con* [id number] IMPRESSION: 1. Slight hazy groundglass opacities in the RIGHT middle lobe and both lower l obes nonspecific but likely infectious or inflammatory. 2. No focal pneumonia or pleural fluid. 3. No mediastinal or hilar lymphadenopathy. 4. Hepatomegaly with diffuse fatty infiltration liver. Recommend correlation w ith liver function studies. 5. Small esophageal hiatal hernia. 6. Chronic biconcave compression of the T6 vertebral body unchanged since the prior MRI 2020
[2022-01-22 11:10] LABS: Blood Urea Nitrogen 19 mg/dL (8-23); Glomerular Filtration Rate 99.7 mL/min (90-130)
[2022-01-22] MEDS: iohexol 350 mg/mL 100 mL Btl IV (11:22)
--- NOTE | 2022-01-22 13:00 | MR_ITS ---
WS: [id number] MRI BRAIN WITHOUT CONTRAST HISTORY: Memory loss with dizziness and headaches for 10 years. COMPARISON: CT head 06/14/2021 TECHNIQUE: Diffusion imaging, multiplanar T1, T2 and FLAIR imaging obtained. No evidence for acute infarct or hemorrhage. Booker-white matter differentiation is normal. Mild atrophy. Very minimal small vessel ischemic disease. No prior infarcts. Ventricles and extra-axial spaces are normal. No inferior displacement of cerebellar tonsils. The sella turcica and pituitary gland are unremarkabl e. Dural venous sinuses and ute of Lopez demonstrate no abnormality on this unenhanced studies. Paranasal sinuses: Clear. Mastoid air cells: Normal. Calvarium and scalp: Intact. MR/MR head wo con* [id number] IMPRESSION: 1. No acute infarct. 2. Mild cerebral atrophy and very minimal small vessel ischemic changes. 3. No hemorrhage.
== END 2022-01-22 10:11 | disposition home or self-care (01) ==
PROVIDERS: Radiology Diagnostic Radiology; PCP Nurse Practitioner Family; Visit Provider Specialist
DX: M54.2 Cervicalgia (principal); R41.3 Other amnesia; R42 Dizziness and giddiness; R51.9 Headache, unspecified
CPT/HCPCS: 70551; 71260; 82565; 84520; Q9967

== ENCOUNTER → 2022-01-23 09:00 | Outpatient (BNVA) | payer MEDICARE, SELFPAY | PROVIDERS: PCP Nurse Practitioner Family; Visit Provider Anesthesiology Pain Medicine | DX: M54.2 Cervicalgia (principal); M43.16 Spondylolisthesis, lumbar region; S32.020A Wedge compression fracture of second lumbar vertebra, initial encounter for closed fracture; S42.309A Unspecified fracture of shaft of humerus, unspecified arm, initial encounter for closed fracture; R41.3 Other amnesia; X58.XXXA Exposure to other specified factors, initial encounter | CPT/HCPCS: 99214 ==

== ENCOUNTER → 2022-01-29 10:52 | Outpatient (BNVA) | payer MEDICARE, SELFPAY | PROVIDERS: PCP Nurse Practitioner Family; Visit Provider Nurse Practitioner Family | DX: I10 Essential (primary) hypertension (principal) | CPT/HCPCS: 80053; 80061; 85025 ==

== ENCOUNTER → 2022-03-07 14:17 | Outpatient (BNVA) | payer MEDICARE, SELFPAY | PROVIDERS: PCP Nurse Practitioner Family; Visit Provider Anesthesiology Pain Medicine | DX: M47.816 Spondylosis without myelopathy or radiculopathy, lumbar region (principal); M54.12 Radiculopathy, cervical region | CPT/HCPCS: 64635; 64636; 72040 ==

== ENCOUNTER → 2022-05-14 14:02 | Outpatient (BNVA) | payer MEDICARE, SELFPAY | PROVIDERS: PCP Family Medicine; Visit Provider Anesthesiology Pain Medicine | DX: M47.816 Spondylosis without myelopathy or radiculopathy, lumbar region (principal) | CPT/HCPCS: 64635; 64636; J1030 ==

== ENCOUNTER → 2022-06-18 08:58 | Outpatient (BNVA) | payer MEDICARE, SELFPAY | PROVIDERS: PCP Family Medicine; Visit Provider Anesthesiology Pain Medicine | DX: M54.50 Low back pain, unspecified (principal); M54.2 Cervicalgia; X58.XXXA Exposure to other specified factors, initial encounter; R41.3 Other amnesia; S42.302A Unspecified fracture of shaft of humerus, left arm, initial encounter for closed fracture | CPT/HCPCS: 99213 ==

== ENCOUNTER → 2022-09-10 08:29 | Outpatient (BNVA) | payer MEDICARE, MEDICAID, SELFPAY | PROVIDERS: PCP Family Medicine; Visit Provider Anesthesiology Pain Medicine | DX: M54.50 Low back pain, unspecified (principal); M54.2 Cervicalgia; M65.30 Trigger finger, unspecified finger; S42.302A Unspecified fracture of shaft of humerus, left arm, initial encounter for closed fracture; R41.3 Other amnesia; X58.XXXA Exposure to other specified factors, initial encounter | CPT/HCPCS: 99214 ==

== ENCOUNTER → 2022-10-08 10:23 | Outpatient (BNVA) | payer MEDICARE, MEDICAID, SELFPAY | PROVIDERS: PCP Family Medicine; Referring Provider Anesthesiology Pain Medicine; Visit Provider Student in an Organized Health Care Education/Training Program | DX: M65.331 Trigger finger, right middle finger; M65.332 Trigger finger, left middle finger; R20.0 Anesthesia of skin; R20.2 Paresthesia of skin | CPT/HCPCS: 20550; 73130; 99214; J3301; J3490 ==